=== PATIENT | male | born 1950 | race Caucasian/White ===

== ENCOUNTER 2017-10-21 11:50 | Emergency (ER) | payer BC, MEDICARE ==
[2017-10-21] MEDS ORDERED: SODIUM CHLORIDE 0.9% 1,000 ML IV STA (14:25)
[2017-10-21] MEDS ORDERED: MECLIZINE 12.5 MG TAB PO STA (14:33)
[2017-10-21] MEDS ORDERED: ONDANSETRON 4 MG/2 ML VIAL IVP STA (14:33)
[2017-10-21 14:46] LABS: Basophils % (A) 0 %; Eosinophils # (A) 0.1 k/uL (0-0.7); Eosinophils % (A) 0 %; HCT 46.2 % (39.0-53.0); HGB 14.4 gm/dL (13.0-17.5); Lymphocytes # (A) 0.5 k/uL (1.0-4.8); Lymphocytes % (A) 4 %; MCH 29.7 pg (25.0-35.0); MCHC 31.3 g/dL (31.0-37.0); MCV 95.1 fL (80.0-100.0); Mean Platelet Volume 7.3; Monocytes # (A) 0.4 k/uL (0-1.0); Monocytes % (A) 3 %; Neutrophils # (A) 12.8 k/uL (1.3-7.7); Neutrophils % (A) 93 %; Platelet Count 318 k/uL (150-450); RBC 4.86 m/uL (4.30-5.90); WBC 13.8 k/uL (3.8-10.6)
[2017-10-21 14:55] LABS: ALT 27 U/L (21-72); AST 24 U/L (17-59); Albumin 4.3 g/dL (3.5-5.0); Alkaline Phosphatase 89 U/L (38-126); Anion Gap 8 mmol/L; Blood Urea Nitrogen 16 mg/dL (9-20); Calcium 9.2 mg/dL (8.4-10.2); Carbon Dioxide 23 mmol/L (22-30); Chloride 106 mmol/L (98-107); Glucose 135 mg/dL (74-99); Magnesium 1.8 mg/dL (1.6-2.3); Potassium 4.5 mmol/L (3.5-5.1); Sodium 137 mmol/L (137-145); Total Bilirubin 0.6 mg/dL (0.2-1.3); Total Protein 7.3 g/dL (6.3-8.2)
[2017-10-21 15:02] LABS: Prothrombin Time 9.7 sec (9.0-12.0)
[2017-10-21 15:07] LABS: Creatine Kinase 60 U/L (55-170)
[2017-10-21 15:09] LABS: Partial Thromboplastin Time 22.5 sec (22.0-30.0)
[2017-10-21 15:19] LABS: Creatine Kinase MB 0.8 ng/mL (0.0-2.4); Troponin I <0.012 ng/mL (0.000-0.034)
--- NOTE | 2017-10-21 15:28 | ED ---
General Adult HPI - General Chief complaint: Dizziness Stated complaint: Dizzy/vomiting Time Seen by Provider: 10/21/17 14:05 Source: patient, family, RN notes reviewed Mode of arrival: wheelchair Limitations: no limitations - History of Present Illness Initial comments: 67-year-old male presents to the emergency department for a chief complaint of dizziness times about 8 hours. Patient states he woke up today and felt somewhat dizzy. Patient states the dizziness pretty much resolves when he lies flat and worsens when he sits up. Patient states he has vomited a couple times and admits to nausea. Patient denies any abdominal pain. Patient denies any diarrhea. Patient denies any medical history besides BPH. Patient denies hitting his head recently or any head trauma. Patient states he has not experienced this sensation before. Patient has no other complaints at this time including shortness of breath, chest pain, abdominal pain, nausea or vomiting, headache, or visual changes. - Related Data Home Medications Medication Instructions Recorded Confirmed Tamsulosin [Flomax] 0.4 mg PO DAILY 10/21/17 10/21/17 Previous Rx's Medication Instructions Recorded Meclizine [Antivert] 25 mg PO TID PRN #20 tab 10/21/17 Ondansetron [Zofran ODT] 4 mg PO Q8HR PRN #15 tab 10/21/17 Allergies Allergy/AdvReac Type Severity Reaction Status Date / Time No Known Allergies Allergy Verified 10/21/17 14:31 Review of Systems ROS Statement: Those systems with pertinent positive or pertinent negative responses have been documented in the HPI. ROS Other: All systems not noted in ROS Statement are negative. Past Medical History Past Medical History: Prostate Disorder History of Any Multi-Drug Resistant Organisms: None Reported Past Surgical History: No Surgical Hx Reported Past Psychological History: No Psychological Hx Reported Smoking Status: Never smoker Past Alcohol Use History: Occasional Past Drug Use History: None Reported General Exam Limitations: no limitations General appearance: alert, in no apparent distress Head exam: Present: atraumatic, normocephalic, normal inspection Eye exam: Present: normal appearance, PERRL, EOMI, nystagmus (fatigable nystagmus ). Absent: scleral icterus, conjunctival injection, periorbital swelling ENT exam: Present: normal exam, normal oropharynx, mucous membranes moist, TM's normal bilaterally, normal external ear exam, other (positive he hallpike to the right) Neck exam: Present: normal inspection, full ROM. Absent: tenderness, meningismus, lymphadenopathy Respiratory exam: Present: normal lung sounds bilaterally. Absent: respiratory distress, wheezes, rales, rhonchi, stridor Cardiovascular Exam: Present: regular rate, normal rhythm, normal heart sounds. Absent: systolic murmur, diastolic murmur, rubs, gallop, clicks GI/Abdominal exam: Present: soft, normal bowel sounds. Absent: distended, tenderness (no tenderness to palpation in the abdomen), guarding, rebound, rigid Neurological exam: Present: alert, oriented X3, CN II-XII intact, other (GCS 15 , strength 5/5 in Upper extremities bilat, patient able to touch finger to nose) Psychiatric exam: Present: normal affect, normal mood Course Vital Signs 10/21/17 12:19 Temperature 97.7 F Pulse Rate 102 H Respiratory 20 Rate Blood Pressure 151/92 O2 Sat by Pulse 99 Oximetry EKG Findings - EKG Comments: EKG Findings:: EKG shows normal sinus rhythm with a ventricular rate of 71 OH interval 192, QRS duration [address] elevation or depression Medical Decision Making - Medical Decision Making 67-year-old male presents to the emergency department for a chief complaint of dizziness 8 hours. Patient states he woke up with the dizziness. Patient states dizziness improves when he is lying flat and worsens when he sits up. Patient denies any medical history besides BPH. On exam, no focal neuro deficits. Fatigueable nystagmus. No abdominal tenderness. Brain CT shows no acute intracranial hemorrhage, mass effect, or midline shift. Chest x-ray shows no acute cardiopulmonary process. CBC, CMP unremarkable. Troponin less than 0.012. Patient's dizziness resolved and laying flat and worsens when sitting up and moving his head. [place]-Hallpike maneuver to the right caused dizziness and the patient. Antivert was given in the emergency department which did help the patient and he does feel better. Patient likely has a benign vertigo. Patient will be given Antivert and Zofran. He will follow up with primary care in 1-2 days. Aware to return to the emergency department if he has worsening symptoms. - Lab Data Result diagrams: 10/21/17 14:36 10/21/17 14:36 Lab Results 0810/21/17 10/21/17 Range/Units 14:36 14:36 14:36 WBC 13.8 H (3.8-10.6) k/uL RBC 4.86 (4.30-5.90) m/uL Hgb 14.4 (13.0-17.5) gm/dL Hct 46.2 (39.0-53.0) % MCV 95.1 (80.0-100.0) fL MCH 29.7 (25.0-35.0) pg MCHC 31.3 (31.0-37.0) g/dL RDW 12.0 (11.5-15.5) % Plt Count 318 (150-450) k/uL Neutrophils % 93 % Lymphocytes % 4 % Monocytes % 3 % Eosinophils % 0 % Basophils % 0 % Neutrophils # 12.8 H (1.3-7.7) k/uL Lymphocytes # 0.5 L (1.0-4.8) k/uL Monocytes # 0.4 (0-1.0) k/uL Eosinophils # 0.1 (0-0.7) k/uL Basophils # 0.0 (0-0.2) k/uL PT (9.0-12.0) sec INR (<1.2) APTT (22.0-30.0) sec Sodium 137 (137-145) mmol/L Potassium 4.5 (3.5-5.1) mmol/L Chloride 106 (98-107) mmol/L Carbon Dioxide 23 (22-30) mmol/L Anion Gap 8 mmol/L BUN 16 (9-20) mg/dL Creatinine 0.92 (0.66-1.25) mg/dL Est GFR (CKD-EPI)AfAm >90 (>60 ml/min/1.73 sqM) Est GFR (CKD-EPI)NonAf 85 (>60 ml/min/1.73 sqM) Glucose 135 H (74-99) mg/dL Calcium 9.2 (8.4-10.2) mg/dL Magnesium 1.8 (1.6-2.3) mg/dL Total Bilirubin 0.6 (0.2-1.3) mg/dL AST 24 (17-59) U/L ALT 27 (21-72) U/L Alkaline Phosphatase 89 (38-126) U/L Total Creatine Kinase 60 (55-170) U/L CK-MB (CK-2) 0.8 (0.0-2.4) ng/mL CK-MB (CK-2) Rel Index 1.3 Troponin I <0.012 (0.000-0.034) ng/mL Total Protein 7.3 (6.3-8.2) g/dL Albumin 4.3 (3.5-5.0) g/dL 10/21/17 Range/Units 14:36 WBC (3.8-10.6) k/uL RBC (4.30-5.90) m/uL Hgb (13.0-17.5) gm/dL Hct (39.0-53.0) % MCV (80.0-100.0) fL MCH (25.0-35.0) pg MCHC (31.0-37.0) g/dL RDW (11.5-15.5) % Plt Count (150-450) k/uL Neutrophils % % Lymphocytes % % Monocytes % % Eosinophils % % Basophils % % Neutrophils # (1.3-7.7) k/uL Lymphocytes # (1.0-4.8) k/uL Monocytes # (0-1.0) k/uL Eosinophils # (0-0.7) k/uL Basophils # (0-0.2) k/uL PT 9.7 (9.0-12.0) sec INR 1.0 (<1.2) APTT 22.5 (22.0-30.0) sec Sodium (137-145) mmol/L Potassium (3.5-5.1) mmol/L Chloride (98-107) mmol/L Carbon Dioxide (22-30) mmol/L Anion Gap mmol/L BUN (9-20) mg/dL Creatinine (0.66-1.25) mg/dL Est GFR (CKD-EPI)AfAm (>60 ml/min/1.73 sqM) Est GFR (CKD-EPI)NonAf (>60 ml/min/1.73 sqM) Glucose (74-99) mg/dL Calcium (8.4-10.2) mg/dL Magnesium (1.6-2.3) mg/dL Total Bilirubin (0.2-1.3) mg/dL AST (17-59) U/L ALT (21-72) U/L Alkaline Phosphatase (38-126) U/L Total Creatine Kinase (55-170) U/L CK-MB (CK-2) (0.0-2.4) ng/mL CK-MB (CK-2) Rel Index Troponin I (0.000-0.034) ng/mL Total Protein (6.3-8.2) g/dL Albumin (3.5-5.0) g/dL Disposition Clinical Impression: Vertigo Disposition: HOME SELF-CARE Condition: Good Instructions: Benign Paroxysmal Positional Vertigo (ED), Dizziness (ED) Additional Instructions: Please take Antivert as needed for vertigo. Please take Zofran for nausea. Follow up with primary care in 1-2 days. Return if you have any worsening symptoms. Prescriptions: Meclizine [Antivert] 25 mg PO TID PRN #20 tab PRN Reason: Vertigo Ondansetron [Zofran ODT] 4 mg PO Q8HR PRN #15 tab PRN Reason: Nausea Is patient prescribed a controlled substance at d/c from ED?: No Referrals: Kyler Stevenson MD [Primary Care Provider] - 1-2 days Time of Disposition: 16:30
--- NOTE | 2017-10-21 15:29 | CT ---
EXAMINATION TYPE: CT brain wo con DATE OF EXAM: 10/21/2017 COMPARISON: None HISTORY: Dizziness and nausea for 6 [address] No known injury CT DLP: 1090.4 mGycm Automated exposure control for dose reduction was used. TECHNIQUE: CT scan of the head is performed without contrast. FINDINGS: There is no acute intracranial hemorrhage, mass effect, or midline shift identified. There are dystro phic basal ganglia calcifications bilaterally. No suspicious extra-axial fluid collection. The ventri cles and sulci are within normal limits in size for the patient's age. Few scattered areas of hypoatt enuation within the subcortical and periventricular white matter are most commonly on the basis of ch ronic microangiopathy. Mild mucosal thickening is present within the right maxillary sinus and ethmoi d sinuses. Remainder the paranasal sinuses and mastoid air cells are well aerated. Globes are intact. Mild atherosclerosis is seen of the intracranial vasculature. IMPRESSION: No acute intracranial hemorrhage, mass effect, or midline shift is seen. Mild paranasal sinus disease .
--- NOTE | 2017-10-21 15:38 | XR ---
EXAMINATION TYPE: XR chest 2V DATE OF EXAM: 10/21/2017 COMPARISON: NONE HISTORY: Chest pain TECHNIQUE: Frontal and lateral views of the chest are obtained on 3 images. FINDINGS: There is no focal air space opacity, pleural effusion, or pneumothorax seen. The cardiac silhouette size is within normal limits. The osseous structures are intact. IMPRESSION: No acute cardiopulmonary process.
[2017-10-21 16:52] VITALS: BP 115/58; PULSE 83; RESP 18; TEMP 97.8
== END 2017-10-21 17:13 | disposition home or self-care (01) ==
LOC: EC 11:50
DX: R42 Dizziness and giddiness (principal); R11.2 Nausea with vomiting, unspecified; N40.0 Benign prostatic hyperplasia without lower urinary tract symptoms; Z79.899 Other long term (current) drug therapy
CPT/HCPCS: 36415; 93005; 80053; 82550; 82553; 83735; 84484; 85025; 85610; 85730; 71046; 70450; 99284; 96374; 96361; J2405